=== PATIENT | male | born 1995 | race Caucasian/White ===

== ENCOUNTER 2018-09-23 20:03 | Emergency (ER) | payer BC ==
[~2018-09-23] VITALS: Ht 188 cm; Wt 175.0 kg
[2018-09-23] MEDS ORDERED: KETOROLAC 60 MG/2 ML VIAL (J1885) IM ONE (23:15)
[2018-09-23] MEDS ORDERED: CYCL10TA PO (23:40)
[2018-09-23] MEDS ORDERED: KETO10TAB PO (23:40)
[2018-09-23 23:45] VITALS: BP 143/79
== END 2018-09-23 23:51 | disposition home or self-care (01) ==
LOC: M ED 20:03
DX: G89.29 Other chronic pain (principal); M54.5 Low back pain; Z88.6 Allergy status to analgesic agent
CPT/HCPCS: 96372; 99283; J1885